=== PATIENT | male | born 1975 | race African-American/Black ===

== ENCOUNTER 2018-03-10 03:21 | Inpatient (IN) ==
[2018-03-10] MEDS ORDERED: MORPHINE 4 MG/1 ML VIAL IV STA ×2 (04:34→05:29)
[2018-03-10] MEDS ORDERED: ONDANSETRON 4 MG/2 ML VIAL IV STA (04:34)
[2018-03-10] MEDS ORDERED: ONDANSETRON 4 MG/2 ML VIAL ONE (04:46)
[2018-03-10] MEDS ORDERED: MORPHINE 10 MG/1 ML VIAL ONE ×2 (04:47→05:43)
[2018-03-10 04:57] LABS: Basophils # 0.1 10*3/uL (0.0-0.2); Eosinophils # 0.5 10*3/uL (0.0-0.87); Eosinophils % 6.3 % (0.00-10.9); Hematocrit 46.6 VOL% (42.0-52.0); Hemoglobin 15.7 GM/DL (14.0-18.0); Immature Granulocytes % 0.2 %; Immature Granulocytes Absolute 0.02 #; Lymphocytes # 2.4 10*3/uL (1.4-4.0); Lymphocytes % 29.1 % (21.2-54.2); Mean Corpuscular HGB Conc 33.7 GM/DL (32-36); Mean Corpuscular Hemoglobin 31 PG (27-34); Mean Corpuscular Volume 91.7 FL (87-102); Monocytes # 1.1 10*3/uL (0.11-0.8); Monocytes % 13.3 % (1.7-12.7); Neutrophils # 4.1 10*3/uL (1.4-7.4); Neutrophils % 50.1 % (38.7-73.9); Platelet Count 287 T/CUMM (130-400); Red Blood Count 5.08 MC/CUMM (3.8-5.5); White Blood Count 8.1 T/CUMM (4-12)
[2018-03-10 05:22] LABS: Albumin 3.7 G/DL (3.4-5.0); Bilirubin,Total 0.4 MG/DL (0.2-1.0); Osmolality,Calculated 277.5 MOS/KG (273-304); Potassium 3.9 MMOL/L (3.5-5.1); Total Protein 7.6 G/DL (6.4-8.3)
[2018-03-10 06:18] LABS: Barbiturates Screen,Urine Negative (Negative); Benzodiazepines Screen,Urine Negative (Negative); Cannabinoid Screen,Urine Positive (Negative); Opiate Screen,Urine Positive (Negative); Phencyclidine Screen,Urine Negative (Negative)
[2018-03-10] MEDS ORDERED: NICOTINE 14 MG/24 HR PATCH TRANSDERM PRN (07:32)
[2018-03-10] MEDS ORDERED: MORPHINE 4 MG/1 ML VIAL IV PRN (07:32)
[2018-03-10] MEDS ORDERED: PROMETHAZINE 25 MG/1 ML VIAL IM PRN (07:32)
[2018-03-10] MEDS ORDERED: SODIUM CHLORIDE 0.9% 1,000 ML IV SCH (07:32)
[2018-03-10] MEDS ORDERED: ONDANSETRON 4 MG/2 ML VIAL IV PRN (07:32)
[2018-03-10] MEDS ORDERED: ENOXAPARIN 40 MG/0.4 ML SYRINGE SUBCUT SCH (08:00)
[2018-03-10] MEDS ORDERED: PANTOPRAZOLE 40 MG VIAL IV SCH (09:00)
[2018-03-10 19:44] VITALS: BP 140/82
== END 2018-03-10 14:05 | disposition left against medical advice (07) | DRG 282 ==
LOC: N.ED 03:21 → N.EDINP 05:49 → N.3E 06:37
PROVIDERS: ADMIT Hospitalist; ATTEND Hospitalist